=== PATIENT | female | born 1950 | race Caucasian/White ===

== ENCOUNTER 2021-01-23 18:26 | Inpatient (IN) | payer MEDICARE, OTHER ==
[~2021-01-23] VITALS: Ht 170.2 cm; Wt 110.2 kg
[2021-01-24 00:53] LABS: HEMOGLOBIN 10.1 gm/dl (12.3-15.3); RED BLOOD COUNT 3.66 M/UL (4.00-5.10); WHITE BLOOD COUNT 8.1 K/UL (4.5-11.0)
[2021-01-24] MEDS ORDERED: LEVEMIR FL100 UNIT/1 SQ (00:58)
[2021-01-24 01:20] LABS: BUN/CREATININE RATIO 18 (0-10)
[2021-01-24 05:41] LABS: BORDETELLA PARAPERTUSSIS Not Detected (Not Detectd); BORDETELLA PERTUSSIS Not Detected (Not Detectd); CHLAMYDIA PNEUMONIAE Not Detected (Not Detectd); CORONAVIRUS HKU1 Not Detected (Not Detectd); CORONAVIRUS NL63 Not Detected (Not Detectd); CORONAVIRUS OC43 Not Detected (Not Detectd); CORONOAVIRUS 229E Not Detected (Not Detectd); HUMAN METAPNEUMOVIRUS Not Detected (Not Detectd); INFLUENZA A Not Detected (Not Detectd); INFLUENZA B Not Detected (Not Detectd); MYCOPLASMA PNEUMONIAE Not Detected (Not Detectd); PARAINFLUENZA VIRUS 1 Not Detected (Not Detectd); PARAINFLUENZA VIRUS 2 Not Detected (Not Detectd); PARAINFLUENZA VIRUS 3 Not Detected (Not Detectd); PARAINFLUENZA VIRUS 4 Not Detected (Not Detectd); RESPIRATORY SYNCYTIAL VIRUS Not Detected (Not Detectd)
[2021-01-24 07:43] LABS: HUMAN RHINOVIRUS/ENTEROVIRUS DETECTED (Not Detectd); SARS-CoV-2 NOT DETECTED (Not Detectd)
[2021-01-24] MEDS ORDERED: ALBUTEROL2.5 MG/3 M NEB (08:02)
[2021-01-24] MEDS ORDERED: PULMICORT0.5 MG/21 INH (08:02)
[2021-01-24] MEDS ORDERED: VENTOLIN HFA 66.7 GM INH (08:03)
[2021-01-24] MEDS ORDERED: AMMONIUM LACTA225 GM TOP (08:03)
[2021-01-24] MEDS ORDERED: ZESTRIL40 MG PO (08:04)
[2021-01-24] MEDS ORDERED: FERROUS SULFAT325 M2 PO (08:04)
[2021-01-24] MEDS ORDERED: JANUVIA100 MG PO (08:04)
[2021-01-24] MEDS ORDERED: DILTIAZEM 24HR240 M1 PO (08:04)
[2021-01-24] MEDS ORDERED: POTASSIUM CHLO10 MEQ PO (08:05)
[2021-01-24] MEDS ORDERED: NEURONTIN600 MG PO (08:09)
[2021-01-24] MEDS ORDERED: FLONASE 0.05% N16 GM (08:09)
[2021-01-24] MEDS ORDERED: ELIQUIS5 MG PO (08:09)
[2021-01-24] MEDS ORDERED: SYNTHROID175 MCG PO (08:10)
[2021-01-24] MEDS ORDERED: LASIX 40 MG TAB40 MG PO (08:10)
[2021-01-24] MEDS ORDERED: ULTRAM50 MG PO (08:11)
[2021-01-24] MEDS ORDERED: YUPELRI175 MCG/3 NEB (08:11)
[2021-01-24] MEDS ORDERED: OZEMPIC0.25 MG/0. SQ (09:02)
[2021-01-24] MEDS ORDERED: LOPRESSOR 50 MG50 MG PO (09:02)
[2021-01-25 05:39] LABS: RED BLOOD COUNT 3.61 M/UL (4.00-5.10)
[2021-01-25 05:42] LABS: WHITE BLOOD COUNT 11.8 K/UL (4.5-11.0)
[2021-01-25 17:13] LABS: BODY FLUID SOURCE PLEURAL
[2021-01-25 17:14] LABS: MONONUCLEAR CELLS 64 (75-100); POLYMORPHONUCLEAR % 36 (0-25); RBC (AUTOMATED) 1700 (0-100000); WBC (AUTOMATED) 838 (0-500)
[2021-01-25 17:37] LABS: LDH, BODY FLUID 108 U/L; TOTAL PROTEIN, BODY FLUID 2.8 gm/dL
[2021-01-26 05:31] LABS: HEMOGLOBIN 10.3 gm/dl (12.3-15.3); RED BLOOD COUNT 3.77 M/UL (4.00-5.10); WHITE BLOOD COUNT 10.7 K/UL (4.5-11.0)
[2021-01-26 05:56] LABS: BUN/CREATININE RATIO 32 (0-10)
[2021-01-27 05:29] LABS: HEMOGLOBIN 11.9 gm/dl (12.3-15.3); RED BLOOD COUNT 4.29 M/UL (4.00-5.10); WHITE BLOOD COUNT 13.9 K/UL (4.5-11.0)
[2021-01-27 05:52] LABS: BUN/CREATININE RATIO 31 (0-10)
[2021-01-28 12:14] LABS: ORGANISM ID Not indicated. (.); SPECIMEN SOURCE Urine (.); STREPTOCOCCUS PNEUMONIAE AG Negative (Negative)
[2021-01-29 05:35] LABS: HEMOGLOBIN 10.1 gm/dl (12.3-15.3); WHITE BLOOD COUNT 11.2 K/UL (4.5-11.0)
[2021-01-29 05:37] LABS: RED BLOOD COUNT 3.68 M/UL (4.00-5.10)
[2021-01-29 06:03] LABS: BUN/CREATININE RATIO 45 (0-10)
[2021-01-30 03:41] LABS: HEMOGLOBIN 9.9 gm/dl (12.3-15.3); RED BLOOD COUNT 3.56 M/UL (4.00-5.10)
[2021-01-30 03:45] LABS: WHITE BLOOD COUNT 14.4 K/UL (4.5-11.0)
[2021-01-30 04:01] LABS: BUN/CREATININE RATIO 41 (0-10)
[2021-01-31 05:12] LABS: HEMOGLOBIN 9.4 gm/dl (12.3-15.3); RED BLOOD COUNT 3.45 M/UL (4.00-5.10); WHITE BLOOD COUNT 13.7 K/UL (4.5-11.0)
[2021-01-31 05:31] LABS: BUN/CREATININE RATIO 40 (0-10)
[2021-01-31] MEDS ORDERED: CARDIZEM 60MG T60 MG PO (11:24)
[2021-01-31] MEDS ORDERED: ROXICODONE TAB 55 MG GT (11:31)
[2021-01-31] MEDS ORDERED: ATIVAN0.5 MG PO (11:31)
== END 2021-01-31 16:18 | disposition expired | DRG 166 ==
LOC: CCU 23:32
PROVIDERS: Internal Medicine; Internal Medicine Pulmonary Disease; ADMIT Internal Medicine
PROC: 0BH17EZ Insertion of Endotracheal Airway into Trachea, Via Natural or Artificial Opening (ICD-10-PCS; principal; 2021-01-24)
PROC: 5A1955Z Respiratory Ventilation, Greater than 96 Consecutive Hours (ICD-10-PCS; principal; 2021-01-24)
PROC: 0WCQ8ZZ Extirpation of Matter from Respiratory Tract, Via Natural or Artificial Opening Endoscopic (ICD-10-PCS; principal; 2021-01-24)
PROC: 0BD48ZX Extraction of Right Upper Lobe Bronchus, Via Natural or Artificial Opening Endoscopic, Diagnostic (ICD-10-PCS; 2021-01-28)
PROC: 0B9C8ZX Drainage of Right Upper Lung Lobe, Via Natural or Artificial Opening Endoscopic, Diagnostic (ICD-10-PCS; 2021-01-28)
PROC: 0W9930Z Drainage of Right Pleural Cavity with Drainage Device, Percutaneous Approach (ICD-10-PCS; 2021-01-28)
DX: J96.21 Acute and chronic respiratory failure with hypoxia (principal); J18.9 Pneumonia, unspecified organism; G92 Toxic encephalopathy; J44.1 Chronic obstructive pulmonary disease with (acute) exacerbation; J90 Pleural effusion, not elsewhere classified; J93.83 Other pneumothorax; I48.20 Chronic atrial fibrillation, unspecified; L03.115 Cellulitis of right lower limb; J44.0 Chronic obstructive pulmonary disease with (acute) lower respiratory infection; C34.91 Malignant neoplasm of unspecified part of right bronchus or lung; I50.32 Chronic diastolic (congestive) heart failure; I25.10 Atherosclerotic heart disease of native coronary artery without angina pectoris; E11.9 Type 2 diabetes mellitus without complications; E03.9 Hypothyroidism, unspecified; I95.9 Hypotension, unspecified; I11.0 Hypertensive heart disease with heart failure; R00.1 Bradycardia, unspecified; E78.5 Hyperlipidemia, unspecified; G89.4 Chronic pain syndrome; Z20.822 Contact with and (suspected) exposure to COVID-19; Z66 Do not resuscitate; E87.6 Hypokalemia; Z79.01 Long term (current) use of anticoagulants; Z79.4 Long term (current) use of insulin
CPT/HCPCS: ECHO; 36415; 36600; 71045; 80048; 80053; 80162; 80202; 82040; 82550; 82553; 82803; 82962; 83605; 83615; 83735; 83986; 84100; 84132; 84155; 84157; 84439; 84443; 84484; 85025; 85027; 86140; 87040; 87070; 87081; 87205; 87206; 87278; 87633; 87899; 88341; 88342; 89051; 92526; 92610; 93306; 94002; 94003; 94640; 94660; 94664; 94760; A6212; C9113; J0456; J0692; J1160; J1205; J1650; J1940; J2250; J2270; J2704; J3370; J7030; J7050; J7070